=== PATIENT | male | born 1965 | race Caucasian/White ===

== ENCOUNTER 2021-11-10 18:29 | Emergency (ER) | payer BC, OTHER ==
[2021-11-10] MEDS ORDERED: Lidocaine 1% 10 ML MDV INJECT ONE (18:43)
[2021-11-10] MEDS ORDERED: Diphtheria,Pertussis(Acell),Tetanus Vaccine 0.5 ML Syringe IM ONE (18:43)
== END 2021-11-10 20:09 | disposition home or self-care (01) ==
LOC: JD.ED 18:29
DX: S61.212A Laceration without foreign body of right middle finger without damage to nail, initial encounter (principal); Z23 Encounter for immunization; W26.0XXA Contact with knife, initial encounter
CPT/HCPCS: 12001; 90471; 90715; 99282-25